=== PATIENT | male | born 1965 | race Caucasian/White ===

== ENCOUNTER 2019-04-13 06:36 | Emergency (ER) | payer OTHER ==
[~2019-04-13] VITALS: Ht 193 cm; Wt 106.6 kg
[2019-04-13 07:19] LABS: BASOPHILS % (AUTO) 0.6 % (0.0-2.0); EOSINOPHILS % (AUTO) 3.1 % (0.0-6.0); HEMATOCRIT 43 % (39-51); LYMPHOCYTES # (AUTO) 1.2 /CMM (0.8-4.8); MEAN CORPUSCULAR HGB CONC 35 g/dl (31.0-36.0); MEAN CORPUSCULAR VOLUME 104 fL (80-96); MONOCYTES # (AUTO) 0.4 /CMM (0.1-1.30); MONOCYTES % (AUTO) 10.8 % (2.0-12.0); NEUTROPHILS # (AUTO) 1.8 /CMM (1.8-8.9); NEUTROPHILS % (AUTO) 51.5 % (43.0-81.0); PLATELET COUNT (AUTO) 102 /CMM (150-450); RED BLOOD CELL COUNT(AUTO) 4.16 MIL/uL (4.5-6.0); WHITE BLOOD COUNT (AUTO) 3.5 K/uL (4.3-11.0)
[2019-04-13 07:25] LABS: CALCIUM, SERUM 8.8 mg/dL (8.5-10.1); CREATININE 0.9 mg/dL (0.6-1.3); POTASSIUM 3.8 mmol/L (3.5-5.1)
[2019-04-13 07:31] LABS: ALBUMIN 3.2 g/dL (3.4-5.0); BILIRUBIN,DIRECT 0.4 mg/dL (0.0-0.2); BILIRUBIN,TOTAL 1.4 mg/dL (0.2-1.0); TOTAL PROTEIN, SERUM 7.7 g/dL (6.4-8.2)
--- NOTE | 2019-04-13 07:33 | NUR ---
ROBERT C/O HAVING DIARRHEA X 1 EVERY MORNING AT APPROX 0500 HOURS. PATIENT STATES HE THINKS IS BECAUSE OF AN ODOR HE SMELLS EVERY MORNING. PT AAOX4, VSS. DENIES CP, SOB, DIZZINESS, N/V AT THIS TIME. PT SEEN & EVAL'D BY DR. AVILA & WILL CONT TO MONITOR.
--- NOTE | 2019-04-13 07:51 | NUR ---
Patient discharged to home in stable condition. Written and verbal after care instructions given. Patient verbalizes understanding of instruction.
[2019-04-13 07:52] VITALS: BP 142/94
== END 2019-04-13 07:53 | disposition home or self-care (01) ==
LOC: ER 06:43
DX: R19.7 Diarrhea, unspecified (principal); D72.819 Decreased white blood cell count, unspecified; D69.6 Thrombocytopenia, unspecified; R74.0 Nonspecific elevation of levels of transaminase and lactic acid dehydrogenase [LDH]; G89.29 Other chronic pain; Z98.890 Other specified postprocedural states; Z60.2 Problems related to living alone
CPT/HCPCS: 36415; 80048-TC; 80076-TC; 83690-TC; 85025-TC